=== PATIENT | male | born 1980 | race Two or more races ===

== ENCOUNTER 2025-04-14 06:45 | Day surgery (SDC) | payer MEDICAID, SELFPAY ==
[2025-04-13 13:24] VITALS: BMI 35.0
[2025-04-14] VITALS (8 sets, daily range): BP systolic 108–145; BP diastolic 74–101; PULSE 63–76; RESP 16–20; TEMP 36.4; O2SAT 95–100; BMI 34.2
[2025-04-14] MEDS: SODIUM CHLORIDE 0.9% 500 ML 500 ML 125 ML IV (07:23)
[2025-04-14] MEDS: fentaNYL CIT INJ 50 mCg/ML AMP 2ML (ASD USE ONLY) IVP (07:24)
[2025-04-14] MEDS: MIDAZOLAM INJ 1 MG/ML VIAL 2 ML (ASD USE ONLY) 2 MG IVP (07:26)
== END 2025-04-14 08:18 | disposition home or self-care (01) ==
PROVIDERS: PCP Nurse Practitioner; Referring Provider Surgery; Visit Provider Surgery
PROC: 0DBE8ZX Excision of Large Intestine, Via Natural or Artificial Opening Endoscopic, Diagnostic (ICD-10-PCS; CPT 45380; principal; 2025-04-14 08:00)
DX: K64.1 Second degree hemorrhoids (principal); A63.0 Anogenital (venereal) warts
CPT/HCPCS: 45378; J1200; J2250; J3010; J7999